=== PATIENT | female | born 1970 ===

== ENCOUNTER 2017-03-16 20:46 | Emergency (ER) | payer SELFPAY ==
[2017-03-16] MEDS ORDERED: MELATONIN10 M4 PO (21:24)
[2017-03-16] MEDS ORDERED: CATAPRES0.1 M1 PO (21:25)
[2017-03-16] MEDS ORDERED: IBUPROFEN800 M1 PO (21:25)
[2017-03-16 22:15] LABS: URINE APPEARANCE CLEAR; URINE BILIRUBIN NEGATIVE (NEG); URINE BLOOD MODERATE (NEG); URINE COLOR YELLOW; URINE GLUCOSE (UA) NEGATIVE (NEG); URINE KETONE NEGATIVE (NEG); URINE LEUKOCYTE ESTERASE POSITIVE (NEG); URINE NITRITE NEGATIVE (NEG); URINE PH 6.5 (5.0-8.0); URINE PROTEIN NEGATIVE (NEG)
[2017-03-16 22:21] LABS: URINE EPITHELIAL CELLS 0-3 /[HPF] (0-10); URINE RBC 0 /[HPF] (0-5)
[2017-03-16 23:00] LABS: BASO % 0.3 % (0-2); EOS % 3.6 % (0-7); EOSINOPHIL ABSOLUTE COUNT 0.3 tho/cmm (0.0-0.7); HCT-HEMATOCRIT 38.4 % (34.0-49.0); HGB-HEMOGLOBIN 13.2 gm/dl (12.0-15.5); IMMATURE GRANULOCYTES ABSOLUTE 0.02 tho/cmm (0-0.03); IMMATURE GRANULOCYTES PERCENT 0.3 % (0-0.3); LYMPH % 44.5 % (20-45); LYMPH ABSOLUTE COUNT 3.1 tho/cmm (0.8-4.5); MCH (MEAN CORPUSCULAR HGB) 30.9 pg (28.0-32.0); MCHC MEAN CORPUSCULAR HGB CONC 34.4 % (32.0-36.0); MCV (MEAN CELL VOLUME) 89.9 fl (82.0-96.0); MONO % 4.2 % (0-12); MONOCYTE ABSOLUTE COUNT 0.3 tho/cmm (0.0-1.2); NEUTROPHIL ABSOLUTE COUNT 3.2 tho/cmm (1.6-8.0); NEUTROPHIL-AUTOMATED 3.2 tho/cmm (1.6-8.0); NEUTROPHILS % 47.1 % (40-80); RED BLOOD COUNT 4.27 mil/cmm (4.00-5.20); RED CELL DISTRIBUTION WIDTH 12.8 % (12.4-16.4); WHITE BLOOD COUNT 6.9 tho/cmm (4.0-10.0)
[2017-03-16 23:12] LABS: ALB/GLOB RATIO 1.1 (0.8-2.0); ALBUMIN 3.3 g/dl (3.5-5.0); ALKALINE PHOSPHATASE 64 U/L (33-138); ALT/SGPT 30 U/L (12-78); BLOOD UREA NITROGEN 10 mg/dl (6-24); CALCIUM 8.3 mg/dl (8.5-10.5); CARBON DIOXIDE-VENOUS 21 mmol/L (22-32); CHLORIDE 113 mmol/l (96-110); CREATININE 0.52 mg/dl (0.50-1.10); GLUCOSE 116 mg/dL (70-110); SODIUM 142 mmol/L (135-145); eGFR VALUE FOR BLACK >90 mL/Min
[2017-03-16 23:14] LABS: ANION GAP 12 mmol/L (0-20)
[2017-03-16 23:15] LABS: AST/SGOT 14 U/L (10-40); BILIRUBIN,TOTAL <0.1 mg/dl (0-1.5); POTASSIUM 3.9 mmol/L (3.7-5.1)
[2017-03-16 23:20] LABS: PROCALCITONIN <0.05 ng/ml (0.05-0.09)
[2017-03-16] MEDS ORDERED: VIBRAMYCIN100 M1 PO (23:27)
== END 2017-03-16 23:32 ==
LOC: EDMED 20:46
PROVIDERS: Emergency Medicine
DX: M79.672 Pain in left foot (principal); M79.671 Pain in right foot; R20.2 Paresthesia of skin; Z87.891 Personal history of nicotine dependence